=== PATIENT | female | born 1950 | race Caucasian/White ===

== ENCOUNTER → 2018-01-15 | Outpatient (CLI) | payer OTHER | END | disposition home or self-care (01) | LOC: NUC 07:45 | DX: D35.1 Benign neoplasm of parathyroid gland (principal); E83.52 Hypercalcemia | CPT/HCPCS: 78072; A9500; A9512 ==

== ENCOUNTER 2018-03-30 10:20 | Day surgery (SDC) | payer OTHER ==
[~2018-03-30] VITALS: Ht 160 cm; Wt 111.1 kg
[~2018-03-30 10:20] MED LIST: ACTIGALL300 MG PO; MAGNESIUM250 MG PO; MELATONIN10 M1 PO; MUCUS RELIEF600 M1 PO; OMEPRAZOLE40 M1 PO; PRAVACHOL80 MG PO; SINGULAIR10 MG PO; SUDOGEST60 MG PO; SYMBICORT60 INHALAT IH; TURMERIC500 M2 PO; TYLENOL EXTRA500 MG PO
[2018-03-30] MEDS ORDERED: DIAZEPAM10 MG PO (10:55)
[2018-03-30 11:12] VITALS: BP 146/74
[2018-03-30 11:44] LABS: ALBUMIN 4.1 G/DL (3.2-4.8); ALKALINE PHOSPHATASE 110 IU/L (3-129); ALT (GPT) 13 IU/L (3-49); AST (GOT) 12 IU/L (2-34); CHLORIDE 104 MEQ/L (99-109); CREATININE 0.7 MG/DL (0.6-1.3); GFR ESTIMATE (CALCULATED) > 59 mL/min/; GLUCOSE 113 mg/dL (70-99); POTASSIUM 4.6 MEQ/L (3.7-5.4); SODIUM 138 MEQ/L (136-147); TOTAL BILIRUBIN 0.6 MG/DL (0.0-1.0); TOTAL PROTEIN 6.9 G/DL (6.4-8.3); UREA NITROGEN (BUN) 15 mg/dL (9-23)
[2018-03-30 13:53] LABS: INTACT PARATHYROID HORMONE 145 pg/mL (10-69)
[2018-03-30] MEDS ORDERED: NORCO 5/3251 TABLET PO (15:00)
[2018-03-30 16:09] VITALS: BP 120/63
[2018-03-30 17:14] VITALS: BP 139/63
== END 2018-03-30 17:09 | disposition home or self-care (01) ==
LOC: SDC 10:20
PROVIDERS: Surgery
DX: N25.81 Secondary hyperparathyroidism of renal origin (principal); D35.1 Benign neoplasm of parathyroid gland; E04.1 Nontoxic single thyroid nodule; M19.90 Unspecified osteoarthritis, unspecified site; K74.3 Primary biliary cirrhosis; M79.7 Fibromyalgia; K21.9 Gastro-esophageal reflux disease without esophagitis; E78.5 Hyperlipidemia, unspecified; Z87.891 Personal history of nicotine dependence; Z90.49 Acquired absence of other specified parts of digestive tract; Z82.0 Family history of epilepsy and other diseases of the nervous system; Z82.49 Family history of ischemic heart disease and other diseases of the circulatory system; Z88.2 Allergy status to sulfonamides; Z88.5 Allergy status to narcotic agent
CPT/HCPCS: 80053; 83970; 88305; 88331; 88332; 93005; J0131; J0690; J1100; J1170; J2250; J2405; J2710; J2765; J3010; J7643; S0020